=== PATIENT | female | born 1960 | race Two or more races ===

== ENCOUNTER → 2020-04-21 | Outpatient (CLI) | payer MEDICAID ==
[~2020-04-21] MED LIST: HYDROXYZINE PO; MELOXICAM PO; PREG150C PO
== END | disposition home or self-care (01) ==
LOC: STAR 10:39
PROVIDERS: ATTEND Anesthesiology
DX: Z01.818 Encounter for other preprocedural examination (principal); Z11.59 Encounter for screening for other viral diseases
CPT/HCPCS: 36415; 87635

== ENCOUNTER 2020-04-23 11:36 | Day surgery (SDC) | payer MEDICAID ==
[~2020-04-23] VITALS: Ht 157.5 cm; Wt 72.1 kg
[2020-04-23 11:56] VITALS: BP 127/83
[2020-04-23] MEDS ORDERED: LACTATED RINGERS 1,000 ML IV SCH (12:01)
[2020-04-23] MEDS ORDERED: CHLORHEXIDINE 15 ML UDC MM ONE (12:30)
[2020-04-23] MEDS ORDERED: FENTANYL PF 100 MCG/2ML ONE ×2 (12:39→16:18)
[2020-04-23] MEDS ORDERED: MIDAZOLAM 1 MG/ML, 2ML ONE (12:39)
[2020-04-23] MEDS ORDERED: DEXAMETHASONE 4 MG/ML, 1ML ONE (12:40)
[2020-04-23] MEDS ORDERED: CEFAZOLIN 1,000 MG ONE (12:40)
[2020-04-23] MEDS ORDERED: HYDROXYZINE PO (12:40)
[2020-04-23] MEDS ORDERED: MELOXICAM PO (12:40)
[2020-04-23] MEDS ORDERED: PROPOFOL 10 MG/ML, 20ML ONE (12:40)
[2020-04-23] MEDS ORDERED: ONDANSETRON 2MG/ML, 2ML ONE (12:40)
[2020-04-23] MEDS ORDERED: PREG150C PO (12:40)
[2020-04-23] MEDS ORDERED: LIDOCAINE 1%, 20ML ONE (14:07)
[2020-04-23] MEDS ORDERED: BUPIVACAINE/PF 0.5% ONE (14:07)
[2020-04-23] MEDS ORDERED: EPHEDRINE 50 MG/ML, 1ML ONE (14:17)
[2020-04-23] MEDS ORDERED: MEPERIDINE/PF 25MG/0.5ML IVPush PRN (14:30)
[2020-04-23] MEDS ORDERED: KETOROLAC 30 MG/1 ML IVPush PRN (14:30)
[2020-04-23] MEDS ORDERED: FENTANYL PF 100 MCG/2ML IV PRN (14:30)
[2020-04-23] MEDS ORDERED: HYDROmorphone 1 MG/ML, 1ML INJ IVPush PRN (14:30)
[2020-04-23] MEDS ORDERED: PROMETHAZINE 25 MG/ML, 1ML IVPush PRN (14:30)
[2020-04-23] MEDS ORDERED: OXYcodone 5 MG/5 ML ORAL.SOL UDC PO PRN (14:30)
[2020-04-23] MEDS ORDERED: HYDROcodone/APAP 7.5-325MG/15ML UDC PO PRN (14:30)
[2020-04-23] MEDS ORDERED: MEPERIDINE/PF 25MG/ML,1ML ONE (16:18)
[2020-04-23] MEDS ORDERED: OXYcodone 5 MG/5 ML ORAL.SOL UDC ONE (16:19)
== END 2020-04-23 17:45 | disposition home or self-care (01) ==
LOC: OUT 11:36
PROVIDERS: ATTEND Orthopaedic Surgery
DX: M24.671 Ankylosis, right ankle (principal); M21.6X1 Other acquired deformities of right foot; M19.071 Primary osteoarthritis, right ankle and foot; I10 Essential (primary) hypertension; F17.210 Nicotine dependence, cigarettes, uncomplicated; M81.0 Age-related osteoporosis without current pathological fracture; Z79.899 Other long term (current) drug therapy; Z72.89 Other problems related to lifestyle; Z98.890 Other specified postprocedural states
CPT/HCPCS: 28740; 29891; 29898; 73620; 76000; C1713; C1762; J0690; J1100; J2175; J2250; J2405; J2704; J7120; J3010